=== PATIENT | female | born 1950 | race Caucasian/White ===

== ENCOUNTER 2022-05-15 11:17 | Outpatient (CLI) | payer MEDICARE ==
[~2022-05-15 11:17] MED LIST: Magnevist 469MG/ML 20 ML VIAL ONE
== END 2022-05-15 11:18 | disposition home or self-care (01) ==
LOC: MRI 11:17
PROVIDERS: ATTEND Radiology Radiation Oncology
DX: D33.3 Benign neoplasm of cranial nerves (principal); G93.9 Disorder of brain, unspecified; H61.892 Other specified disorders of left external ear
CPT/HCPCS: 70553